=== PATIENT | male | born 1975 ===

== ENCOUNTER 2017-11-07 08:03 | Emergency (ER) | payer BC ==
[~2017-11-07] VITALS: Ht 154.9 cm; Wt 63.5 kg
[2017-11-07] MEDS ORDERED: ZYRTEC10 M3 (08:20)
[2017-11-07] MEDS ORDERED: BENADRYL25 MG PO (10:43)
[2017-11-07] MEDS ORDERED: MEDROLPACK PO (10:43)
[2017-11-07] MEDS ORDERED: ZYRTEC10 M3 PO (10:43)
== END 2017-11-07 11:10 | disposition home or self-care (01) ==
LOC: ER 08:03
DX: R21 Rash and other nonspecific skin eruption (principal)